=== PATIENT | male | born 1950 | race Caucasian/White ===

== ENCOUNTER → 2017-05-10 | Outpatient (CLI) | payer OTHER ==
[~2017-05-10] MED LIST: AMLO-110 PO; CHOL100010 PO; LISI-725 PO; XRL10 PO
--- NOTE | 2017-05-10 12:31 | DIAGNOSTIC IMAGING REPORT ---
(RENAL)RETROPERITON COMP CLINICAL HISTORY: 66 years-old Male presenting with NEUROGENIC BLADDER, history of self-catheterization to void. TECHNIQUE: Real-time grayscale and limited color Doppler ultrasound imaging of the kidneys and bladder was performed. COMPARISON: None. FINDINGS: Right kidney: Normal echogenicity. Right kidney measures 14.5 cm. Pelviectasis with the renal pelvis measuring 17 mm in AP dimension. No convincing evidence of calculus or mass. Normal perfusion. Left kidney: Normal echogenicity. Left kidney measures 12.8 cm. Pelviectasis. Lobular 4.2 x 3.6 x 4.4 cm cyst, which may have a single thin septation. Simple cyst noted at the upper pole measuring 1.9 x 1.7 x 2.0 cm. Normal perfusion. Bladder: Distended. Right ureteral jet present. Post void residual volume measures 35 mL. Other: None. IMPRESSION: 1. Bilateral pelviectasis without convincing evidence of obstruction. Nonvisualization of the left ureteral jet without evidence of left hydroureteronephrosis. 2. Left renal cysts. 3. Distended bladder could be compatible with the history of neurogenic bladder. Post void residual volume is normal status post catheterization. Electronically signed by: Rambo Loredo M.D. 05/10/2017 12:30 PM Dictated Date/Time: 05/10/2017 12:26 PM
== END | disposition home or self-care (01) ==
LOC: C.ULTR 11:46
PROVIDERS: ATTEND Urology
DX: N31.9 Neuromuscular dysfunction of bladder, unspecified (principal); N20.0 Calculus of kidney; N28.1 Cyst of kidney, acquired